=== PATIENT | female | born 1950 | race Caucasian/White ===

== ENCOUNTER → 2018-05-20 | Outpatient (CLI) | payer MEDICARE ==
--- NOTE | 2018-05-20 14:01 | CARD ---
MR#: [id number] Date of Study: 05/20/2018 Ordering Physician: ORION ALBERTS, Referring Physician: ORION ALBERTS Tech: Colette Manrique RDCS APPROVED REPORT EXAM: Two-dimensional and M-mode echocardiogram with Doppler and color Doppler. Other Information Quality : Good INDICATION Hypertension/HCVD 2D DIMENSIONS RVDd3.3 (2.9-3.5cm)Left Atrium(2D)4.0 (1.6-4.0cm) IVSd0.9 (0.7-1.1cm)Aortic Root(2D)2.5 (2.0-3.7cm) LVDd4.8 (3.9-5.9cm)LVOT Diameter2.0 (1.8-2.4cm) PWd0.9 (0.7-1.1cm)LVDs3.4 (2.5-4.0cm) FS (%) 29.6 %SV61.7 ml LVEF(%)55.0 (>50%) Aortic Valve AoV Peak Sloan.131.5cm/sAoV VTI26.5cm AO Peak GR.6.9mmHgLVOT Peak Sloan.84.4cm/s AO Mean GR.4mmHgAVA (VMAX)1.97cm2 SISSY (VTI)2.00cm2 Mitral Valve MV E Zpxrdmch21.7cm/sMV DECEL QZBU296rq MV A Ikqtlvxv36.3cm/sE/A Ratio0.9 Tricuspid Valve TR P. Xrgleazo024yh/sRAP WJKNKLHN9deHa TR Peak Gr.39ydHwURWM49ihGo Pulmonary Vein S1 Roknrkyd38.7cm/sD2 Hmgzlgxg02.6cm/s LEFT VENTRICLE The left ventricle is normal size. There is normal left ventricular wall thickness. The left ventricu lar systolic function is normal and the ejection fraction is within normal range. The Ejection Fracti on is 55-60%. There is normal LV segmental wall motion. Transmitral Doppler flow pattern is Grade I-a bnormal relaxation pattern. RIGHT VENTRICLE The right ventricle is normal size. The right ventricular systolic function is normal. ATRIA The left atrium is mildly dilated. The right atrium is mildly dilated. The interatrial septum is inta ct with no evidence for an atrial septal defect or patent foramen ovale as noted on 2-D or Doppler im aging. AORTIC VALVE The aortic valve is calcified but opens well. Doppler and Color Flow revealed no significant aortic r egurgitation. There is no significant aortic valvular stenosis. MITRAL VALVE The mitral valve is calcified but opens well. There is no evidence of mitral valve prolapse. There is no mitral valve stenosis. Doppler and Color-flow revealed mild mitral regurgitation. TRICUSPID VALVE The tricuspid valve is normal in structure and function. Doppler and Color Flow revealed trace to mil d tricuspid regurgitation. The PA pressure was estimated at 32 mmHg. There is no tricuspid valve sten osis. PULMONIC VALVE The pulmonary valve is normal in structure and function. Doppler and Color Flow revealed trace pulmon ic valvular regurgitation. There is no pulmonic valvular stenosis. GREAT VESSELS The aortic root is normal in size. The ascending aorta is normal in size. The IVC is normal in size a nd collapses >50% with inspiration. PERICARDIAL EFFUSION There is no evidence of significant pericardial effusion. Critical Notification Critical Value: No <Conclusion> The left ventricular systolic function is normal and the ejection fraction is within normal range. Th e Ejection Fraction is 55-60%. There is normal LV segmental wall motion. Doppler and Color Flow revealed trace to mild tricuspid regurgitation. The PA pressure was estimated at 32 mmHg. Signed by : Jason Worley, Electronically Approved : 05/20/2018 14:00:22
== END | disposition home or self-care (01) ==
LOC: ECHO 09:09
PROVIDERS: ATTEND Internal Medicine Cardiovascular Disease
DX: I10 Essential (primary) hypertension (principal); I07.1 Rheumatic tricuspid insufficiency; Z88.8 Allergy status to other drugs, medicaments and biological substances
CPT/HCPCS: 93306

== ENCOUNTER → 2020-04-18 | Outpatient (CLI) | payer MEDICARE, OTHER ==
[~2020-04-18] MED LIST: REGADENOSON 0.4 MG/5 ML DISP.SYRIN. IV ONE
--- NOTE | 2020-04-18 17:30 | CARD ---
MR#: [id number] Date of Study: 04/18/2020 Ordering Physician: OROIN ALBERTS, Referring Physician: ORION ALBERTS, Tech: Sabrina Zuniga APPROVED REPORT EXAM: Two-dimensional and M-mode echocardiogram with Doppler and color Doppler. Other Information Quality : AverageHR: 71bpm INDICATION Palpitations RISK FACTORS Hypertension 2D DIMENSIONS Left Atrium(2D)3.5 (1.6-4.0cm)IVSd1.0 (0.7-1.1cm) Aortic Root(2D)2.9 (2.0-3.7cm)LVDd4.7 (3.9-5.9cm) LVOT Diameter2.0 (1.8-2.4cm)PWd0.9 (0.7-1.1cm) LVDs3.8 (2.5-4.0cm)FS (%) 17.8 % SV37.0 mlLVEF(%)37.1 (>50%) Aortic Valve AoV Peak Sloan.106.1cm/sAoV VTI24.7cm AO Peak GR.4.5mmHgAO Mean GR.3mmHg Mitral Valve MV E Rkscnmqz30.4cm/sMV E Peak Gr.126mmHg MV DECEL XFMV441dxRY A Moskqqgf71.4cm/s MV E Mean Gr.1mmHgMV LIV12gr E/A Ratio0.6MVA (PHT)2.61cm2 TDI E/Lateral E'11.2E/Medial E'9.5 Pulmonary Valve PV Peak Zlzsuxqx24.5cm/sPV Peak Grad.2mmHg Tricuspid Valve TR P. Ipbjgjho345fb/sRAP JXKIVXLE9xvWr TR Peak Gr.24vyJqSKZM01scVj Pulmonary Vein S1 Dzjfdyrs82.6cm/sD2 Knrsovzn77.3cm/s PVa kpceapup951nnmo LEFT VENTRICLE The left ventricle is normal size. There is borderline to mild concentric left ventricular hypertroph y. The left ventricular systolic function is normal and the ejection fraction is within normal range. EF 55% There is normal LV segmental wall motion. Transmitral Doppler flow pattern is Grade I-abnorma l relaxation pattern. RIGHT VENTRICLE The right ventricle is normal size. There is normal right ventricular wall thickness. The right ventr icular systolic function is normal. ATRIA The left atrium size is normal. The right atrium size is normal. The interatrial septum is intact wit h no evidence for an atrial septal defect or patent foramen ovale as noted on 2-D or Doppler imaging. AORTIC VALVE The aortic valve is thickened but opens well. Doppler and Color Flow revealed no significant aortic r egurgitation. There is no significant aortic valvular stenosis. MITRAL VALVE The mitral valve is normal in structure and function. There is no evidence of mitral valve prolapse. There is no mitral valve stenosis. Doppler and Color-flow revealed mild mitral regurgitation. TRICUSPID VALVE The tricuspid valve is normal in structure and function. Doppler and Color Flow revealed trace tricus pid regurgitation with an estimated PAP of 28 mmHg. There is no tricuspid valve stenosis. PULMONIC VALVE The pulmonic valve is not well visualized. Doppler and Color Flow revealed no pulmonic valvular regur gitation. There is no pulmonic valvular stenosis. GREAT VESSELS The aortic root is normal in size. The IVC is normal in size and collapses >50% with inspiration. PERICARDIAL EFFUSION There is no evidence of significant pericardial effusion. Critical Notification Critical Value: No <Conclusion> The left ventricular systolic function is normal and the ejection fraction is within normal range. EF 55% There is normal LV segmental wall motion. Doppler and Color-flow revealed mild mitral regurgitation. Signed by : Jason Worley, Electronically Approved : 04/18/2020 17:29:47
--- NOTE | 2020-04-18 17:49 | RAD ---
MR#: [id number] Date of Study: 04/18/2020 Ordering Physician: ORION ALBERTS, Referring Physician: ALLEN DE LA GARZA Tech: JONNIE Damon ARRT (R) (N) APPROVED REPORT Test Type: Pharmacological Stress Nurse/Tech: Valencia Freeman RN Test Indications: Palpitations Cardiac History: Hypertension Medications: See Electronic Medical Record Medical History: See Electronic Medical Record Resting ECG: SR with PVC's Resting Heart Rate: 71 bpm Resting Blood Pressure: 168/101mmHg Pretest Chest Pain: No chest pain Nurse/Tech Notes S1S2, Lungs CTA Consent: The procedure was explained to the patient in lay terms. Informed consent was witnessed. Andrew eout was entered into [employer]. History and Stress Test performed by RT Zo (R) (N) Pharm. Details Pharmacologic stress testing was performed using 0.4mg per 5ml of regadenoson given intravenously ove r 7-10 seconds. Stress Symptoms Dyspnea, Nausea, Dizziness, Fatigue POST EXERCISE Reason for Termination: Infusion complete Max HR: 136 bpm Max Blood Pressure: 142/75mmHg Blood Pressure response to exercise: Normal blood pressure response during stress. Heart Rate response to exercise: WNL Chest Pain: No. Arrhythmia: No. PVC's continued into recovery. ST Change: No. INTERPRETATION Stress EKG Conclusion: No acute ischemic changes. Frequent PAC's and PVC's. Imaging Protocol IMAGE PROTOCOL: Rest Tc-99m/stress Tc-99m 1 day Rest: Stress: Viability: Radiopharm.Tc99m BjfxemjskXl93y Sestamibi Dose10.1mCi 33mCi Img Date 04/18/2020 04/18/2020 Inj-Img Opzj29hpi. 60min. Rest Admin Site:IV - Left AntecubitalAdministrator:JONNIE Damon, VALENTE (R)(N) Stress Admin Site: IV - Left AntecubitalAdministrator: RT Lisa Pathak)(N) STRESS DATA End Diast. Vol.75.0mlAv. Heart Uizl108.0bpm End Syst. Vol.56.0mlCO Index BSA0.0L/min Myocardial Ljua303.0gEject. Zgcxxyjn19.0% Stress Rates Pk. Fill Rate2.06EDV/secLVtime Pk. Fill 126.48msec Pk. Empty Rate2.39ESV/secLVtime Pk. Eject52.75msec 1/3 Pk. Fill0.35EDV/sec Stress Scores Regional WT1.00Summed WT41.00 Regional WM2.00Summed WM38.00 LV Perfusion Normal perfusion at stress/rest. Wall Motion Wall motion is difficult to analyze likely due to gating artifact in the setting of PVC's and PAC's. LV Perf. Quant 17 Seg. SSS0.00 17 Seg. SRS2.00 17 Seg. SDS0.00 Stress Defect Extent (% LAD)0.00Rest Defect Extent (% LAD)0.00Rev. Defect Extent (% LAD)0.00 Stress Defect Extent (% LCX) 0.00Rest Defect Extent (% LCX)6.30Rev. Defect Extent (% LCX)0.00 Stress Defect Extent (% RCA)0.00Rest Defect Extent (% RCA)0.00Rev. Defect Extent (% RCA)0.00 Stress Defect Extent (% HANK)0.00Rest Defect Extent (% HANK)3.50Rev. Defect Extent (% HANK)0.00 Other Information Quality:Fair Risk Assessment: Low-Moderate Risk Conclusion 1. No evidence of stress induced EKG changes. Frequent PAC's and PVC's noted prior to and after stres s. 2. Normal perfusion at stress/rest. 3. Moderate to severe LV dysfunction with calculated EF of 31%, likely due to gating error in the set ting of arrhythmia. No evidence of TID to suggest any multivessel ischemia leading to LV dysfunction at stress. *In comparision, echo from same day with normal EF. 4. Low to moderate risk study Signed by : Jason Worley, Electronically Approved : 04/18/2020 17:49:26
== END | disposition home or self-care (01) ==
LOC: NM 09:17
PROVIDERS: ATTEND Internal Medicine Cardiovascular Disease
DX: I34.0 Nonrheumatic mitral (valve) insufficiency (principal); I51.7 Cardiomegaly
CPT/HCPCS: 78452; 93017; 93306; A9500; J2785

== ENCOUNTER → 2021-04-23 | Outpatient (CLI) | payer MEDICARE, OTHER ==
--- NOTE | 2021-04-23 17:45 | CARD ---
MR#: [id number] Date of Study: 04/23/2021 Ordering Physician: ORION ALBERTS, Referring Physician: ORION ALBERTS Tech: Griselda Salcedo [facility] APPROVED REPORT EXAM: Two-dimensional and M-mode echocardiogram with Doppler and color Doppler. Other Information Quality : GoodHR: 76bpm Rhythm : NSR INDICATION Hypertension/HCVD RISK FACTORS Hypertension 2D DIMENSIONS RVDd3.4 (2.9-3.5cm)Left Atrium(2D)4.0 (1.6-4.0cm) IVSd1.1 (0.7-1.1cm)Aortic Root(2D)2.8 (2.0-3.7cm) LVDd4.7 (3.9-5.9cm)LVOT Diameter2.0 (1.8-2.4cm) PWd0.9 (0.7-1.1cm)LVDs3.0 (2.5-4.0cm) FS (%) 37.1 %SV68.8 ml LVEF(%)67.1 (>50%) Aortic Valve AoV Peak Sloan.123.4cm/sAoV VTI28.2cm AO Peak GR.6.1mmHgLVOT Peak Sloan.73.2cm/s AO Mean GR.3mmHgAVA (VMAX)1.91cm2 Mitral Valve MV E Wzkbsunr64.8cm/sMV DECEL HGYK859fs MV A Ajptxhjg78.7cm/sE/A Ratio0.8 Pulmonary Valve PV Peak Kmvdurvi509.9cm/s Tricuspid Valve TR P. Dljnuoaa144bh/sTR Peak Gr.28mmHg LEFT VENTRICLE The left ventricle is normal size. There is normal left ventricular wall thickness. The left ventricu lar systolic function is normal and the ejection fraction is within normal range. Estimated ejection fraction is 50-55% There is normal LV segmental wall motion. Transmitral Doppler flow pattern is Grad e I-abnormal relaxation pattern. RIGHT VENTRICLE The right ventricle is normal size. There is normal right ventricular wall thickness. The right ventr icular systolic function is normal. ATRIA The left atrium size is normal. The right atrium size is normal. AORTIC VALVE The aortic valve is normal in structure and function. Doppler and Color Flow revealed no significant aortic regurgitation. There is no significant aortic valvular stenosis. MITRAL VALVE The mitral valve is normal in structure and function. There is no evidence of mitral valve prolapse. There is no mitral valve stenosis. Doppler and Color-flow revealed moderate mitral regurgitation. TRICUSPID VALVE The tricuspid valve is normal in structure and function. Doppler and Color Flow revealed mild tricusp id regurgitation. Estimated PAP 32 mmHg. There is no tricuspid valve stenosis. PULMONIC VALVE The pulmonary valve is normal in structure and function. Doppler and Color Flow revealed no pulmonic valvular regurgitation. GREAT VESSELS The aortic root is normal in size. The ascending aorta is normal in size. The IVC is normal in size a nd collapses >50% with inspiration. PERICARDIAL EFFUSION There is no evidence of significant pericardial effusion. Critical Notification Critical Value: No <Conclusion> The left ventricle is normal size. The left ventricular systolic function is normal and the ejection fraction is within normal range. Estimated ejection fraction is 50-55% There is normal LV segmental wall motion. Doppler and Color Flow revealed no significant aortic regurgitation. There is no significant aortic valvular stenosis. Doppler and Color-flow revealed moderate mitral regurgitation. Doppler and Color Flow revealed mild tricuspid regurgitation. Estimated PAP 32 mmHg. Signed by : Isaías Faria MD Electronically Approved : 04/23/2021 17:45:36
== END ==
LOC: ECHO 09:50
PROVIDERS: ATTEND Internal Medicine Cardiovascular Disease
DX: I08.1 Rheumatic disorders of both mitral and tricuspid valves (principal); R00.2 Palpitations
CPT/HCPCS: 93306

== ENCOUNTER → 2021-05-28 | Outpatient (CLI) | payer MEDICARE, OTHER ==
[~2021-05-28] MED LIST changes: +ATEN50TA PO
--- NOTE | 2021-05-28 17:12 | RAD ---
MR#: [id number] Date of Study: 05/28/2021 Ordering Physician: ORION ALBERTS, Referring Physician: ALLEN DE LA GARZA Tech: RT Zo (R) (N) APPROVED REPORT Test Type: Pharmacological Stress Nurse/Tech: Breanne Hinds RN Test Indications: Dyspnea on exertion Cardiac History: HTN, See EMR. Medications: ASA, See EMR. Medical History: Breast CA-radiation, See EMR. Resting ECG: SR Resting Heart Rate: 61 bpm Resting Blood Pressure: 140/72mmHg Pretest Chest Pain: No chest pain Nurse/Tech Notes Lungs CTA, Heart tones regular. Consent: The procedure was explained to the patient in lay terms. Informed consent was witnessed. Andrew eout was entered into [employer]. History and Stress Test performed by RT Zo (R) (N) Pharm. Details Pharmacologic stress testing was performed using 0.4mg per 5ml of regadenoson given intravenously ove r 7-10 seconds. Stress Symptoms Dyspnea & Nausea, were relieved by the completion of the test. POST EXERCISE Reason for Termination: Infusion complete Max HR: 106 bpm Max Blood Pressure: 174/84mmHg Blood Pressure response to exercise: Normal blood pressure response during stress. Heart Rate response to exercise: WNL Chest Pain: No. Arrhythmia: Yes. Frequent PVCs. ST Change: No. INTERPRETATION Stress EKG Conclusion: Baseline EKG showed sinus rhythm. No ischemic changes at peak stress. Few PV C's without any significant arrhythmias. Imaging Protocol IMAGE PROTOCOL: Rest Tc-99m/stress Tc-99m 1 day Rest: Stress: Viability: Radiopharm.Tc99m IkrprcvdkSj05n Sestamibi Dose9.5mCi 30mCi Duration 15min. 10min. Img Date 05/28/2021 05/28/2021 Inj-Img Kmzm86bva. 60min. Rest Admin Site:IV - Left AntecubitalAdministrator:RT Danielle PathakR)(N) Stress Admin Site: IV - Left AntecubitalAdministrator: JONNIE Damon, ARRT (R)(N) STRESS DATA End Diast. Vol.95.0mlAv. Heart Rate76.0bpm End Syst. Vol.26.0mlCO Index BSA0.0L/min Myocardial Mspr998.0gEject. Znyhqxgc43.0% Stress Rates Pk. Fill Rate2.32EDV/secLVtime Pk. Fill 72.64msec Pk. Empty Rate3.16ESV/secLVtime Pk. Xxwfs609.05msec /3 Pk. Fill1.70EDV/sec Stress Scores Regional WT1.00Summed WT1.00 Regional WM0.00Summed WM4.00 Study quality was good. Left Ventricular size was Normal at Rest and Stress. Lung uptake was . Left Ventricular ejection fraction is 67%. The rest and stress images show normal perfusion, normal contraction and thickening. LV Perf. Quant 17 Seg. SSS2.00 17 Seg. SRS6.00 17 Seg. SDS0.00 Stress Defect Extent (% LAD)0.00Rest Defect Extent (% LAD)0.00Rev. Defect Extent (% LAD)0.00 Stress Defect Extent (% LCX) 0.00Rest Defect Extent (% LCX)20.00Rev. Defect Extent (% LCX)0.00 Stress Defect Extent (% RCA)0.00Rest Defect Extent (% RCA)0.00Rev. Defect Extent (% RCA)0.00 Stress Defect Extent (% HANK)0.00Rest Defect Extent (% HANK)4.80Rev. Defect Extent (% HANK)0.00 Conclusion 1. Regadenoson cardioisotope stress test did not show any evidence of ischemia or infarct. 2. Normal left ventricular systolic function with ejection fraction calculated at 67%. 3. Low risk for cardiac events. Signed by : Orion Alberts, Electronically Approved : 05/28/2021 17:12:01
== END ==
LOC: NM 09:36
PROVIDERS: ATTEND Internal Medicine Cardiovascular Disease
DX: R06.09 Other forms of dyspnea (principal)
CPT/HCPCS: 78452; 93017; A9500; J2785